=== PATIENT | male | born 1995 | race Caucasian/White ===

== ENCOUNTER → 2018-06-19 | Outpatient (REF) | payer BC | LOC: M SFHCLERA 10:48 | PROVIDERS: ATTEND Nurse Practitioner Family | DX: R68.89 Other general symptoms and signs (principal) ==

== ENCOUNTER → 2018-11-10 | Outpatient (CLI) | payer BC ==
--- NOTE | 2018-11-10 11:01 | REP ---
Left foot: Four views. History: Unspecified injury. Pain laterally status post inversion injury. Findings: Four views of the left foot demonstrate overall normal mineralization. No fracture or subluxation is seen. Impression: No fracture noted. Electronically Signed by Duong Worthington MD 11/10/2018 10:52 A
--- NOTE | 2018-11-10 11:02 | REP ---
Left ankle series: Four views. History: Injury. The inversion injury. Findings: Four views of the left ankle demonstrate mild anterolateral soft tissue swelling. Ankle mortise is intact. No fractures seen. Impression: No fracture noted. Electronically Signed by Duong Worthington MD 11/10/2018 10:53 A
== END ==
LOC: M LRY 10:10
PROVIDERS: ATTEND Nurse Practitioner Family
DX: S99.922A Unspecified injury of left foot, initial encounter (principal); S99.912A Unspecified injury of left ankle, initial encounter; X58.XXXA Exposure to other specified factors, initial encounter; Y92.89 Other specified places as the place of occurrence of the external cause

== ENCOUNTER → 2018-12-24 | Outpatient (REF) | payer BC | LOC: M SFHCLERA 14:34 | PROVIDERS: ATTEND Physician Assistant | DX: R50.9 Fever, unspecified (principal) ==